=== PATIENT | male | born 1980 | race Caucasian/White ===

== ENCOUNTER 2025-01-08 09:26 | Outpatient (CLI) | payer BC, SELFPAY ==
--- OUTSIDE RECORDS SUMMARY | 2025-01-08 10:20 | XMS_ITS | Clinical Summary ---
Author Organization [facility] Address [address] [place] [address] Care Team Providers Care Audit Partner Name Role Phone Hollis Connor MD Primary Care Provider [phone] Allergies Active Allergy Reactions Criticality Noted Date Comments Banana Hives Reaction: Hives, , Reaction: Hives, Medications GLUCAGON 1 mg injection INJECT 1 ML (1 UNIT OR 1 MG) UNDER THE SKIN DAILY NEEDED FOR HYPOGLYCEMIA 1 kit 5 04/12/20 19 Active CONTOUR NEXT TEST STRIPS strip USE TO CHECK GLUCOSE 4 TIMES DAILY 1 04/12/20 19 Active lancets (Accu-Chek Fastclix Lancet Drum) misc 1 each by other route as directed 100 each 3 01/31/20 20 Active Dexcom G6 Sensor device as directed 04/06/20 21 Active Dexcom G6 Transmitter device as directed 06/03/20 21 Active valsartan (DIOVAN) 40 mg tablet Take 1 tablet (40 mg total) by mouth daily 90 tablet 3 05/16/20 22 Active Accu-Chek Guide Me Glucose Mtr misc USE TO CHECK GLUCOSE 4 TIMES DAILY 06/06/20 23 Active levothyroxine (SYNTHROID) 200 mcg tablet Take 1 tablet (200 mcg total) by mouth daily 08/16/20 24 Active insulin lispro (HumaLOG, ADMELOG) 100 unit/mL vial for injection INFUSE 160 UNITS VIA INSULIN PUMP DAILY 08/08/20 24 Active benzonatate (TESSALON) 200 mg capsuleIndicat ions:Cough Take 1 capsule (200 mg total) by mouth 2 (two) times a day as needed for cough 45 capsule 10/15/19 Active atorvastatin (LIPITOR) 20 mg tablet Take 1 tablet by mouth once daily 90 tablet 12/14/19 Active atorvastatin (LIPITOR) 20 mg tablet Take 1 tablet by mouth once daily 90 tablet 09/19/19 025 Discontinued Active Problems Problem Noted Date Diagnosed Date Class 3 severe obesity due t o excess calories with serious comorbidity and body mass index (BMI) of 40.0 to 44.9 in adult 10/15/2024 Assessment & Plan (10/15/2024 9:51 AM MOTOR VEHICLE ESCORT DRIVER): Wt Readings from Last 3 Encounters: 10/15/24 (!) 150.1 kg (331 lb) 08/19/24 (!) 150.2 kg (331 lb 1.6 oz) 06/26/23 (!) 145.2 kg (320 lb) BMI Readings from Last 3 Encounters: 10/15/24 41.37 kg/m 08/19/24 41.38 kg/m 06/26/23 40.00 kg/m Not at goal of bmi <30 Continue diet and exercise BMI Follow-up includes: nutrition counseling and exercise counseling. Type 1 diabetes mellitus with hyperglycemia 05/2023 Overview (06/26/2023): Dr Blanton at [facility] Assessment & Plan (08/19/2024 2:48 PM MOTOR VEHICLE ESCORT DRIVER): Lab Results Component Value Date HGBA1C 8.2 (H) 06/07/2023 HGBA1C 8.4 05/16/2022 HGBA1C 8.1 (H) 04/22/2021 Lab Results Component Value Date MICROALBUR 3.0 03/26/2018 LDLCALC 46 06/07/2023 CREATININE 0.78 (L) 06/07/2023 Most recent A1c at this lead dental assistant was 7.4 as per patient Not at goal of A1c <7 Recommend follow up with endocrine Would recommend increasing ozempic dose to 0.5 mg qweekly and increase basal insulin to get better glucose control He will folow up with endocrinology Assessment & Plan (06/26/2023 9:10 AM CDT): Blood sugars above goal and recommended efforts at weight loss with low carb diet increased exercise and should follow-up with his lead dental assistant for management of his diabetes as they direct. Primary hypertension 06/26/2023 Assessment & Plan (10/15/2024 9:52 AM MOTOR VEHICLE ESCORT DRIVER): BP Readings from Last 3 Encounters: 10/15/24 124/62 08/19/24 114/70 06/26/23 120/72 Vitals BP 124/62 (BP Location: Left arm, Patient Position: Sitting) Pulse 96 Temp 37.5 C (99.5 F) (Oral) Resp 16 Ht 190.5 cm (6' 3 ) Wt (!) 150.1 kg (331 lb) SpO2 95% BMI 41.37 kg/m Lab Results Component Value Date POTASSIUM 3.9 06/07/2023 At goal at this time Continue valsartan 40 mg qd Assessment & Plan (08/19/2024 2:43 PM MOTOR VEHICLE ESCORT DRIVER): BP Readings from Last 3 Encounters: 08/19/24 114/70 06/26/23 120/72 05/09/23 125/82 Vitals BP 114/70 (BP Location: Left arm, Patient Position: Sitting) Pulse 71 Resp 16 Ht 190.5 cm (6' 3 ) Wt (!) 150.2 kg (331 lb 1.6 oz) SpO2 98% BMI 41.38 kg/m Lab Results Component Value Date POTASSIUM 3.9 06/07/2023 At goal at this time Continue valsartan 40 mg qd Assessment & Plan (06/26/2023 9:09 AM CDT): Pressure well controlled on valsartan 40 mg daily Anemia 06/26/2023 Assessment & Plan (06/26/2023 9:08 AM CDT): Laboratory evaluation today and call back for results. Colonoscopy done July 2021 after her episode of diverticulitis showed hyperplastic polyp and hemorrhoids with recommendation for 3-5 year follow-up. Morbid obesity with body mas s index (BMI) of 40.0 to 44.9 in adult 06/26/2023 Assessment & Plan (10/15/2024 9:52 AM MOTOR VEHICLE ESCORT DRIVER): Wt Readings from Last 3 Encounters: 10/15/24 (!) 150.1 kg (331 lb) 08/19/24 (!) 150.2 kg (331 lb 1.6 oz) 06/26/23 (!) 145.2 kg (320 lb) BMI Readings from Last 3 Encounters: 10/15/24 41.37 kg/m 08/19/24 41.38 kg/m 06/26/23 40.00 kg/m Not at goal of bmi <30 Continue diet and exercise BMI Follow-up includes: nutrition counseling and exercise counseling. Not at goal at thsi time Assessment & Plan (08/19/2024 2:50 PM MOTOR VEHICLE ESCORT DRIVER): Wt Readings from Last 3 Encounters: 08/19/24 (!) 150.2 kg (331 lb 1.6 oz) 06/26/23 (!) 145.2 kg (320 lb) 05/09/23 (!) 148.8 kg (328 lb) BMI Readings from Last 3 Encounters: 08/19/24 41.38 kg/m 06/26/23 40.00 kg/m 05/09/23 41.00 kg/m Not at goal of bmi <30 Continue diet and exercise BMI Follow-up includes: nutrition counseling and exercise counseling. Not at goal at thsi time Recommend increasing ozempic to 0.5 mg qweekly x 30-90 days then increasing to 1 mg qweekly Assessment & Plan (06/26/2023 9:10 AM CDT): Patient is encouraged to lose weight with a combination of caloric reduction and increased exercise. Various strategies discussed. The long-term risks associated with continued morbid obesity discussed. Cellulitis of toe of left foot 05/16/2022 Assessment & Plan (05/16/2022 11:06 AM CDT): Keflex for 10 days and call back if does not improve. May need to see Podiatry quickly if no improvement. Consider antifungal treatment as well Acute diverticulitis 05/17/2021 Overview (05/17/2021): Added automatically from request for surgery [id number] Healthcare maintenance 03/31/2017 Assessment & Plan (08/19/2024 2:44 PM MOTOR VEHICLE ESCORT DRIVER): Discussed lifestyle modifications, diet and exercise. Routine blood work ordered/reviewed today. Yearly vision and dental examinations. Assessment & Plan (06/26/2023 9:09 AM CDT): Flu shot due now. Tetanus booster every 10 years. COVID booster recommended. Pneumovax completed. Colonoscopy due between July 2024 and July 2026. Will see him back in 1 year for physical fasting lab sooner if needed Assessment & Plan (05/16/2022 11:06 AM CDT): Flu shot each June. Tetanus booster every 10 years. COVID vaccine booster in the winter. Will see him back in 1 year for physical fasting lab sooner if needed. Assessment & Plan (04/30/2021 4:55 PM CDT): Flu shot each June. Tetanus booster every 10 years. COVID vaccine completed. Will see him back in 1 year for physical fasting lab sooner if needed. Assessment & Plan (04/27/2020 9:41 AM CDT): Flu shot recommended june. Tetanus booster every 10 years. Will see him back in 1 year for physical and fasting lab sooner if needed. Assessment & Plan (05/14/2019 8:03 PM CDT): Flu shot each June. Tetanus booster every 10 years. Will see him back in 1 year for physical and fasting lab sooner if needed. Assessment & Plan (04/09/2018 8:35 AM CDT): Flu shot each June. Tetanus booster every 10 years. Will see him back in the office in 1 year for physical and fasting lab sooner if needed. Assessment & Plan (03/31/2017 8:34 AM CDT): Flu shot each June. Tetanus booster every 10 years. Return to clinic in 1 year for repeat physical with fasting lab sooner if needed. Hypothyroidism 02/01/2014 Overview (12/23/2016): HYPOTHYROIDISM NOS Assessment & Plan (08/19/2024 2:43 PM MOTOR VEHICLE ESCORT DRIVER): Lab Results Component Value Date TSH 0.06 (L) 06/07/2023 Slightly hyperthryoid last visit Recheck labs now Assessment & Plan (06/26/2023 9:09 AM CDT): Labs will be printed and faxed to his lead dental assistant office and he will contact them in a few days for advice on changing his levothyroxine dose. Assessment & Plan (05/16/2022 11:05 AM CDT): TSH suppressed. Follow-up with lead dental assistant for adjustment of his levothyroxine dose. Labs faxed to his lead dental assistant. Assessment & Plan (04/30/2021 4:54 PM CDT): Patient is asymptomatic on current dose of levothyroxine and TSH free T4 are normal and we will repeat levels before next visit. Assessment & Plan (04/27/2020 9:41 AM CDT): Patient is asymptomatic on current dose of levothyroxine and TSH free T4 are normal and we will repeat levels before next visit. Assessment & Plan (07/29/2019 1:54 PM MOTOR VEHICLE ESCORT DRIVER): Patient is asymptomatic on current dose of levothyroxine and TSH free T4 are normal and we will repeat levels before next visit. Assessment & Plan (05/14/2019 8:03 PM CDT): Patient is asymptomatic on current dose of levothyroxine and TSH free T4 are normal and we will repeat levels before next visit. Assessment & Plan (04/09/2018 8:35 AM CDT): Patient is asymptomatic on current dose of levothyroxine and TSH free T4 are normal and we will repeat levels before next visit. Assessment & Plan (03/31/2017 8:34 AM CDT): Patient is asymptomatic on current dose of levothyroxine and TSH is normal and we will repeat levels before next visit. Type 1 diabetes mellitus without complication (C MS/HCC) 12/25/2012 Overview (05/16/2022): Dr Blanton at [facility] Assessment & Plan (10/15/2024 9:57 AM MOTOR VEHICLE ESCORT DRIVER): Lab Results Component Value Date HGBA1C 8.2 (H) 06/07/2023 No results found for: SCRA1C Assessment & Plan (05/16/2022 11:05 AM CDT): A1c above goal. If sugars and carbs and increase exercise for weight loss. Follow-up with his lead dental assistant for management of his insulin pump Assessment & Plan (04/30/2021 4:54 PM CDT): Suggested changing his pumps site and using a new vial of insulin as there is no other obvious cause of his suddenly elevated blood sugars. Discuss with his lead dental assistant if no improvement. He has long-acting insulin at home and I provided him with a prescription for short-acting insulin for boluses if needed if pump found to be malfunctioning over the weekend. Assessment & Plan (04/27/2020 9:41 AM CDT): A1c above goal patient is aware of importance of working on diet exercise weight loss and following up with his lead dental assistant for management of his insulin. Continue his atorvastatin and LDLs below goal. Blood pressure normal with normal microalbumin creatinine ratio therefore holding SACHA-inhibitor. Assessment & Plan (07/29/2019 1:54 PM MOTOR VEHICLE ESCORT DRIVER): LDL much improved on his atorvastatin. He is without side effects. Check all labs before next visit. Follow-up with his lead dental assistant for management of his sugars. Will see him back in 9 months for physical and fasting lab sooner if needed. Assessment & Plan (05/14/2019 8:04 PM CDT): Continue Ozempic and insulin and follow up with his lead dental assistant as they direct. Start atorvastatin 20 mg p.o. Q.h.s. And check lipids and LFTs before next visit in 3 months. Assessment & Plan (04/09/2018 8:35 AM CDT): A1c above goal and proper diet and weight loss recommended. Continue exercise. Check blood sugars 3-5 times daily with his insulin pump. Follow up with his lead dental assistant who manages his insulin. Plan on statin therapy once 38 years old. Assessment & Plan (03/31/2017 8:35 AM CDT): A1c is above goal and I have urged him to increase exercise and lose weight and continue low carb diet. He will be seeing a tack maker next week. Follow up with his lead dental assistant who manages his insulin pump. He should check blood sugars 3- 5 times daily. Monofilament testing is intact. Blood pressure is below goal without medication and microalbumin creatinine ratio remains normal. Consider starting statin therapy at age 38. Otherwise LDL currently well controlled. He did diabetic eye exam. Resolved Problems Problem Noted Date Diagnosed Date Resolved Date Diabetes mellitus 07/16/2012 03/31/2017 Overview (12/22/2016): Diabetes mellitus Encounters Date Type Department Care Team Description 10/15/2024 10:10 AM MOTOR VEHICLE ESCORT DRIVER - 10/15/2024 11:59 PM MOTOR VEHICLE ESCORT DRIVER [place] [address] Type 1 diabetes mellitus without complication (CMS/HCC) ([facility]) Discharge Disposition: Discharge to home or self care 10/15/2024 10:00 AM MOTOR VEHICLE ESCORT DRIVER Office Visit [facility] at [address] [place] [address] Hollis Connor MD Influenza A (Primary Dx); Fever, unspecified fever cause; Type 1 diabetes mellitus without complication (CMS/HCC) ([facility]); Primary hypertension; Morbid obesity with body mass index (BMI) of 40.0 to 44.9 in adult ([facility]); Class 3 severe obesity due to excess calories with serious comorbidity and body mass index (BMI) of 40.0 to 44.9 in adult ([facility]) from Last 3 Months Immunizations Immunization Administration Dates Next Due Influenza, Quadrivalent, Spl it, Intramuscular 07/19/2019 Influenza, Quadrivalent, Spl it, Preservative Free, Intramuscular 07/06/2022,06/28/2021,07/01/2020 Influenza, Split 06/30/2010 Influenza, Trivalent, IM (MDV) 07/10/2012 Influenza, Trivalent, Preser vative Free, Intramuscular 08/19/2024 Influenza, Unspecified 06/26/2023(Deferr ed: Patient Refused),04/18/2023(Deferred: Patient Refused),04/30/2021(Deferred: Patient Refused),04/20/2020(Deferred: Patient Refused),04/25/2019(Deferred: Patient Refused),05/30/2018,05/30/2018, 017,06/20/2016 Moderna SARS-CoV-2 Monovalen t Vaccination (12+ YRS) 10/31/2020,10/03/2020 Pneumococcal Polysaccharide PPV23 03/19/2014,10/2013 Td, adsorbed 09/18/2003 Tdap 11/10/2015,03/19/2014,03/19/2014 Surgical History Surgery Date Site/Laterality Comments OTHER SURGICAL HISTORY 01-podiatry: Dr Cummins COLONOSCOPY 08/09/2021 Medical History Medical History Date Comments Hx Other Medical 01-podiatry Hx Other Medical Hypothyroidism, primary Diabetes mellitus (HCC) Diabetes Hx Other Medical Endo- Dr Morena Coleman Hypertension Hypercholesteremia Thyroid disease Family History Medical History Relation Name Comments Other Brother 2 Alive and well; Thyroid disease Father Thyroid diso rder; Other Mother Alive and well; Thyroid disease Other Family histo ry of Thyroid disease; Other Paternal Grandfather Cancer -lung (asbestosis); Relation Name Status Comments Brother 1 Alive Brother 2 Father Mother Alive Other Paternal Grandfather Alive Social History Tobacco Use Types Packs/Day Years Used Date Smoking Tobacco: Never Smokeless Tobacco: Never Tobacco Cessation:Counseling Given: Not Answered Alcohol Use Standard Drinks/Week Comments Yes 0 (1 standard drink = 0.6 oz pur e alcohol) PHQ-2 Answer Date Recorded PHQ-2 Total Score (If total score is 3 or more points, staff should administer the PHQ-9) 0 10/15/2024 Sex and Gender Information Value Date Recorded Sex Assigned at Not on file Legal Sex Male 9:27 AM MOTOR VEHICLE ESCORT DRIVER Gender Identity Not on file Sexual Orientation Not on file Obstetrics History Last Filed Vital Signs Vital Sign Reading Time Taken Comments Blood Pressure 124/62 10/15/2024 9:42 AM MOTOR VEHICLE ESCORT DRIVER Pulse 96 10/15/2024 9:42 AM MOTOR VEHICLE ESCORT DRIVER Temperature 37.5 C (99.5 F) 10/15/2024 9:42 AM MOTOR VEHICLE ESCORT DRIVER Respiratory Rate 16 10/15/2024 9:42 AM MOTOR VEHICLE ESCORT DRIVER Oxygen Saturation 95% 10/15/2024 9:42 AM MOTOR VEHICLE ESCORT DRIVER Inhaled Oxygen Concentration - - Weight 150.1 kg (331 lb) 10/15/2024 9:42 AM MOTOR VEHICLE ESCORT DRIVER Height 190.5 cm (6' 3 ) 10/15/2024 9:42 AM MOTOR VEHICLE ESCORT DRIVER Body Mass Index 41.37 10/15/2024 9:42 AM MOTOR VEHICLE ESCORT DRIVER Plan of Treatment Health Maintenance Due Date Last Done Comments Hepatitis C Screening 1978 Hepatitis B Screening 1996 Pneumococcal vaccine <65 (2 of 2 - PCV) 03/19/2015 03/19/2014, 03/19/2014 Hemoglobin A1C 12/06/2023 06/07/2023, 04/19, 04/22/2021, Additional history exists Dilated Eye Exam 04/18/2024 04/18/2022, 10/2020, 12/25/2019, Additional history exists Covid-19 Vaccine ( season) 2024 10/04/2021, 10/31/2020, 10/03/2020 Lipid Panel 06/07/2024 06/07/2023, 04/19, 04/22/2021, Additional history exists TSH Level 06/07/2024 06/07/2023, 06/18, 05/07/2022, Additional history exists eGFR 06/07/2024 06/07/2023, 04/19, 04/22/2021, Additional history exists Foot Exam 06/26/2024 06/26/2023, 04/19, 04/30/2021, Additional history exists Colon Cancer Screening-Colonoscopy 08/09/2025 08/09/2021 Regular Well Visit/Exam 18-64 08/19/2025 08/19/2024, 06/26/2023, 05/16/2022, Additional history exists Albumin Creatinine Ratio, Urine 10/15/2025 10/15/2024, 06/07/2023, 05/07/2022, Additional history exists Depression Screening 10/15/2025 10/15/2024, 08/19/2024, 06/26/2023, Additional history exists DTaP/Tdap/Td Vaccine (4 - Td or Tdap) 11/10/2025 11/10/2015, 03/19/2014, 03/19/2014, Additional history exists Influenza Vaccine Completed 08/19/2024, , 06/28/2021, Additional history exists HPV Vaccines Aged Out No longer eligi ble based on patient's age to complete this topic Procedures Procedure Name Priority Date/Time Associated Diagnosis Comments ALBUMIN CREATININE RATIO, URINE Routine 10/15/2024 10:10 AM MOTOR VEHICLE ESCORT DRIVER Type 1 diabetes mellitus without complication ([facility]) ([facility]) POC INFLUENZA A/B, COVID-19 ANTIGEN Routine 10/15/2024 9:46 AM MOTOR VEHICLE ESCORT DRIVER Fever, unspecified fever cause EGFR Routine 06/07/2023 9:21 AM CDT Preventative [facility] care HEMOGLOBIN A1C Routine 06/07/2023 9:21 AM CDT [facility] LIPID PANEL Routine 06/07/2023 9:21 AM CDT [facility] TSH Routine 06/07/2023 9:21 AM CDT [facility] care Other specified hypothyroidism DIABETIC EYE EXAM Routine 04/18/2022 COLONOSCOPY 08/09/2021 11:26 AM MOTOR VEHICLE ESCORT DRIVER DIABETIC FOOT EXAM Routine 03/31/2017 from Last 3 Months or Most Recently Relevant to Health Maintenance Results * Albumin Creatinine Ratio, Urine (10/15/2024 10:10 AM MOTOR VEHICLE ESCORT DRIVER) Albumin Ur 16.4 mg/L Comment: Interpretive Data No reference range established. Current interpretive data was last revised 2019. Creatinine Ur 233.4 mg/dL [facility] Comment: Interpretive Data No reference range established. Current interpretive data was last revised 2019. Albumin Creatinine Ratio, Ur 7 1 - 29 mg/g [facility] Urine 10/15/2024 10:1 0 AM MOTOR VEHICLE ESCORT DRIVER 10/15/2024 9:22 PM MOTOR VEHICLE ESCORT DRIVER Hollis Connor MD LAB URINE ORDERABLES Final Resul t [facility] [address] Department [place] [address] * (ABNORMAL) POC Influenza A/B, COVID-19 antigen (10/15/2024 9:46 AM MOTOR VEHICLE ESCORT DRIVER) Pathologist [facility] Influenza A Ag, POC Positive(A) Negative [facility] Influenza B Ag, POC Negative Negative [facility] COVID-19 Ag POC Presumptive Negative Presumptive Negative, Invalid [facility] Nasopharyngeal 10/15/2024 9: 46 AM MOTOR VEHICLE ESCORT DRIVER us Hollis Connor MD POINT OF CARE TEST ORDERABLES Ed ited Result - Final [facility] [address] [place] [address] * eGFR (06/07/2023 9:21 AM CDT) eGFR 113 mL/min/1. 73 m2 [facility] Comment: Interpretive Data Reference Interval Normal >/= 90 mL/min/1.73m2 Mildly decreased* 60 - 89 mL/min/1.73m2 Mildly to moderately decreased 45 - 59 mL/min/1.73m2 Moderately to severely decreased 30 - 44 mL/min/1.73m2 Severely decreased 15 - 29 mL/min/1.73m2 Kidney Failure < 15 mL/min/1.73m2 *Relative to young adult level Estimated glomerular filtration rate is determined by the 2020 CKD-EPI equation recommended by the National Kidney Foundation (A Unifying Approach to GFR Estimation: Recommendations of the NKF-ASK Task Force on Reassessing the Inclusion of Race in Diagnosing Kidney Disease, JASN 2020). The CKD-EPI equation should not be used for patients with unstable renal function and has not been validated in children and those over 70. Current interpretive data was last reviewed 2021. Testing performed by: [address], [address] Blood 06/07/2023 9:21 AM CDT 06/07/2023 2:41 PM CDT Radames Archer MD LAB BLOOD ORDERABLES Final R esult Performing Organization Address City/[facility]/ZIP Co de Phone Number [facility] ([place]) [address] [place] [address] [employer] [place] [phone] * (ABNORMAL) TSH (06/07/2023 9:21 AM CDT) Thyroid Stimulating Hormone 0.06(L) 0.30 - 4.20 mcIUnit/mL [facility] ([place]) Comment:Testing performed by : [address], [address] Blood 06/07/2023 9:21 AM CDT 06/07/2023 2:33 PM CDT Narrative [facility] ([place]) - 06/07/2023 3:16 PM CDT fasting Radames Archer MD LAB BLOOD ORDERABLES Final R esult [facility] ([place]) [address] [facility] [place] [address] * (ABNORMAL) Hemoglobin A1c (06/07/2023 9:21 AM CDT) Hgb A1C 8.2(H) 4.0 - 5.6 % [facility] ([place]) Comment:Testing performed by : [facility], [address] [place] [address]., [id number] Estimated Average Glucose 189 mg/dL [facility] ([place]) Comment: The ADA recommends reporting an estimated Average Glucose (eAG) with all Hemoglobin A1c results using the equation derived from a study of 507 normal and diabetic adults. Minority populations were underrepresented and children were not included. (Diabetes Care 31:3637-7496, 2008). The eAG is not equivalent to a fasting glucose. Testing performed by: [address] [address] Blood 06/07/2023 9:21 AM CDT 06/07/2023 2:33 PM CDT Narrative [facility] ([place]) - 06/07/2023 3:13 PM CDT fasting us Radames Archer MD LAB BLOOD ORDERABLES Final R esult [facility] ([place]) [address] [facility] Department [place] [address] * (ABNORMAL) Lipid panel (06/07/2023 9:21 AM CDT) [facility] Cholesterol 92 30 - 199 mg/dL [facility] ([place]) Comment: Interpretive Data Ages < or = 19 years Acceptable: <170 mg/dL Borderline high: 170-199 mg/dL High: >or= 200 mg/dL Ages > or = 20 years Desirable: <200 mg/dL Borderline high: 200-239 mg/dL High: >or= 240 mg/dL Literature References: 1. Expert Panel on Integrated Guidelines for Cardiovascular Health and Risk Reduction in Children and Adolescents. Pediatrics 2011;128:S213 2. NCEP Expert Panel. Circulation 2004;110:227 Current Interpretive Data was last revised on 2018. Testing performed by: [address] [place]., [address] Triglycerides 44 <=149 mg/dL [facility] ([place]) Comment: Interpretive Data Ages < or = 9 years Acceptable: <75 mg/dL Borderline high: 75-99 mg/dL High: >or= 100 mg/dL Ages 10 to 20 years Acceptable: <90 mg/dL Borderline high: 90-129 mg/dL High: >or= 130 mg/dL Ages > or = 20 years Desirable: <150 mg/dL Borderline high: 150-199 mg/dL High: 200-499 mg/dL Very high: >or= 499 mg/dL Literature References: 1. Expert Panel on Integrated Guidelines for Cardiovascular Health and Risk Reduction in Children and Adolescents. Pediatrics 2011;128:S213 2. NCEP Expert Panel. Circulation 2004;110:227 Current Interpretive Data was last revised on 2018. Testing performed by: [facility], [address] [place] [address]., [address] HDL 37(L) >=40 mg/dL [facility] ([place]) Comment: Interpretive Data Ages < or = 19 years Acceptable: >45 mg/dL Borderline low: 40-45 mg/dL Low: <40 mg/dL Ages > or = 20 years Desirable: >or= 60 mg/dL Low: <40 mg/dL Literature References: 1. Expert Panel on Integrated Guidelines for Cardiovascular Health and Risk Reduction in Children and Adolescents. Pediatrics 2011;128:S213 2. NCEP Expert Panel. Circulation 2004;110:227 Current Interpretive Data was last revised on 2018. Testing performed by: [facility], [address] [place] [address]., [address] LDL, calculated 46 <=129 mg/dL [facility] ([place]) Comment: Interpretive Data Ages < or = 19 years Acceptable: <110 mg/dL Borderline high: 110-129 mg/dL High: >or= 130 mg/dL Ages > or = 20 years Optimal: <100 mg/dL Near optimal: 100-129 mg/dL Borderline high: 130-159 mg/dL High: >160 mg/dL Literature References: 1. Expert Panel on Integrated Guidelines for Cardiovascular Health and Risk Reduction in Children and Adolescents. Pediatrics 2011;128:S213 2. NCEP Expert Panel. Circulation 2004;110:227 Current Interpretive Data was last revised on 2018. Testing performed by: [facility], [address] [place] [address]., [address] Non-HDL Cholesterol 55 mg/dL [facility] ([place]) Comment: Interpretive Data Ages < or = 19 years Acceptable: <120 mg/dL Borderline high: 120-144 mg/dL High: >145 mg/dL Ages > or = 20 years When triglycerides are >200 mg/dL, Non-HDL cholesterol is a secondary target of therapy with treatment goals that are 30 mg/dL greater than the LDL cholesterol target. Literature References: 1. Expert Panel on Integrated Guidelines for Cardiovascular Health and Risk Reduction in Children and Adolescents. Pediatrics 2011;128:S213 2. NCEP Expert Panel. Circulation 2004;110:227 Current Interpretive Data was last revised on 2018. Testing performed by: [facility], [address] [place] [address]., [address] Chol/HDL ratio 2 MOIZ MCMULLEN ([place]) Comment:Testing performed by : [facility], [address] [place] [address]., [address] Blood 06/07/2023 9:21 AM CDT 06/07/2023 2:33 PM CDT Narrative ELIO MCMULLEN ([place]) - 06/07/2023 3:16 PM CDT fasting us Radames Archer MD LAB BLOOD ORDERABLES Final R esult ELIO KEMI ([place]) 1 [facility] Department of Laboratories [place], [place] [id number] * Diabetic Eye Exam (04/18/2022) us Generic External Data Provider HEALTH MAINTENANC E Final Result * COLONOSCOPY (08/09/2021 11:26 AM MOTOR VEHICLE ESCORT DRIVER) Anatomical Region Laterality Modality Other Narrative Procedure Note Irineo Seaman MD - 08/09/2021 11:26 AM CST [facility] Patient Name: David Maurice Procedure Date: 08/09/2021 11:26AM Date of : 1980 Admit Type: Outpatient Age: 40 Gender: Male Attending MD: Irineo Seaman M.D. Room: [facility] ENDOSCOPY ROOM 1 Note Status: Finalized Patient Profile: This is a 40 year old male. Patient has recentepisode of acute diverticulitis, doing well afterantibiotic treatment. Colonoscopy for evaluation. No family history of colon cancer per Procedure: Colonoscopy Indications: This is the patient's first colonoscopy, Follow-upof diverticulitis Referring MD: Rodrick Montes PA-C Providers: Irineo Seaman M.D. Impression: - One 8 mm polyp in the distal sigmoid colon,removed with a cold snare. Resected and retrieved. - Internal hemorrhoids. Recommendation: - Await pathology results. - Repeat colonoscopy in 3 - 5 years for screening purposes. - Continue present medications. Medicines: Monitored Anesthesia Care Complications: No immediate complications. Estimated Blood Loss: Estimated blood loss: none. Procedure: Pre-Anesthesia Assessment: - Prior to the procedure, a History and Physicalwas performed, and patient medications and allergieswere reviewed. The patient's tolerance of previous anesthesia was also reviewed. The risks andbenefits of the procedure and the sedation options and risks were discussed with the patient. All questions were answered, and informed consent was obtained. Prior Anticoagulants: The patient has taken no previous anticoagulant or antiplatelet agents. ASA Grade Assessment: II - A patient with mild systemicdisease. After reviewing the risks and benefits, the patient was deemed in satisfactory condition to undergo the procedure. The benefits, risks and alternatives of theprocedure and sedation were discussed and informed consentwas obtained. All questions were answered. Please referto the signed informed consent document in the medical record. The bowel preparation used was Miralax and bisacodyl tablets via split dose instruction. The scope was passed under direct vision. The Pediatric Colonoscope PCF-H190L [id number] was introducedthrough the anus and advanced to the the cecum, identifiedby appendiceal orifice and ileocecal valve. Thequality of the bowel preparation was good. Bowel prep was administered using a split dose. Findings: The perianal and digital rectal examinations were normal. The cecum appeared normal. The descending colon, transverse colon and ascending colon appeared normal. Multiple medium-mouthed diverticula were found in the sigmoid colon.No inflammatory changes noted at this time An 8 mm polyp was found in the distal sigmoid colon. The polyp was sessile. The polyp was removed with a cold snare. Resection and retrieval were complete. Internal hemorrhoids were found during retroflexion. The hemorrhoids were small. Electronically signed by Irineo Seaman M.D. Irineo Seaman M.D. 08/09/2021 2:00:14 PM Number of Addenda: 0 Note Initiated On: 08/09/2021 11:26 AM Procedure Code(s): --- Professional --- 66360, Colonoscopy, flexible; with removal of tumor(s), polyp(s), or other lesion(s) by snare technique Diagnosis Code(s): --- Professional --- K64.8, Other hemorrhoids K63.5, Polyp of colon K57.32, Diverticulitis of large intestine without perforation orabscess without bleeding K57.30, Diverticulosis of large intestine without perforation orabscess without bleeding CPT copyright 2019 [employer]. All rights reserved. The codes documented in this report are preliminary and upon hi low truck driver reviewmay be revised to meet current compliance requirements. Recognized by the [employer] for promoting quality in endoscopy us Irineo Seaman MD ENDOSCOPY PROCEDURES Final Result * Diabetic Foot Exam (03/31/2017) Narrative Elzbieta Garcia - 03/31/2017 Results already scanned in media us Historical Provider HEALTH MAINTENANCE Final Result from Last 3 Months or Most Recently Relevant to Health Maintenance Insurance [facility] [facility] Advance Directives For more information, please contact: [phone] * Full Code (Latest Code Status on File) Date Activated Date Inactivated Comments 08/09/2021 11:15 AM 08/09/2021 6:46 PM Care Teams Audit Partner Relationship Specialty Start Date End Date Hollis Connor MD [address] [place] [address] PCP - General Family Medicine 08/19/24
--- OUTSIDE RECORDS SUMMARY | 2025-01-08 10:20 | XMS_ITS | Referral Summary ---
Author Organization [facility] Address [address] [place] [phone] Care Team Providers Care Aluminum Siding Mechanic Name Role Phone Hollis Connor MD Primary Care Provider [phone] Encounters Date Type Department Care Team Description 10/15/2024 10:10 AM STENCIL MACHINE OPERATOR - 10/15/2024 11:59 PM STENCIL MACHINE OPERATOR Hospital Encounter [address] [address] Type 1 diabetes mellitus without complication (CMS/HCC) ([facility]) Discharge Disposition: Discharge to home or self care 10/15/2024 10:00 AM STENCIL MACHINE OPERATOR Office Visit [facility] Primary Care at [address] [place] [phone] Hollis Connor MD Influenza A (Primary Dx); Fever, unspecified fever cause; Type 1 diabetes mellitus without complication (CMS/HCC) ([facility]); Primary hypertension; Morbid obesity with body mass index (BMI) of 40.0 to 44.9 in adult ([facility]); Class 3 severe obesity due to excess calories with serious comorbidity and body mass index (BMI) of 40.0 to 44.9 in adult ([facility]) from Last 3 Months Allergies Active Allergy Reactions Criticality Noted Date [...] as needed for cough 45 capsule 10/15/19 25 Active atorvastatin (LIPITOR) 20 mg tablet Take 1 tablet by mouth once daily 90 tablet 12/14/19 25 Active atorvastatin (LIPITOR) 20 mg tablet Take 1 tablet by mouth once daily 90 tablet 09/19/19 25 025 Discontinued Active Problems Problem Noted Date Diagnosed Date Class 3 severe obesity due t o excess calories with serious comorbidity and body mass index (BMI) of 40.0 to 44.9 in adult 10/15/2024 Assessment & Plan (10/15/2024 9:51 AM STENCIL MACHINE OPERATOR): Wt Readings from Last 3 Encounters: 10/15/24 [...] counseling. Type 1 diabetes mellitus with hyperglycemia 10/0 05/2023 Overview (06/26/2023): Dr Blanton at [facility] Assessment & Plan (08/19/2024 2:48 PM STENCIL MACHINE OPERATOR): Lab Results Component Value Date HGBA1C 8.2 (H) 06/07/2023 HGBA1C 8.4 05/16/2022 HGBA1C 8.1 (H) 04/22/2021 Lab Results Component Value Date MICROALBUR 3.0 03/26/2018 LDLCALC 46 06/07/2023 CREATININE 0.78 (L) 06/07/2023 Most recent A1c at this management tech was 7.4 as per patient Not at [...] increased exercise and should follow-up with his management tech for management of his diabetes as they direct. Primary hypertension 06/26/2023 Assessment & Plan (10/15/2024 9:52 AM STENCIL MACHINE OPERATOR): BP Readings from Last 3 Encounters: 10/15/24 [...] qd Assessment & Plan (08/19/2024 2:43 PM STENCIL MACHINE OPERATOR): BP Readings from Last 3 Encounters: 08/19/24 [...] 06/26/2023 Assessment & Plan (10/15/2024 9:52 AM STENCIL MACHINE OPERATOR): Wt Readings from Last 3 Encounters: 10/15/24 [...] time Assessment & Plan (08/19/2024 2:50 PM STENCIL MACHINE OPERATOR): Wt Readings from Last 3 Encounters: 08/19/24 [...] (05/17/2021): Added automatically from request for surgery [id number] Healthcare maintenance 03/31/2017 Assessment & Plan (08/19/2024 2:44 PM STENCIL MACHINE OPERATOR): Discussed lifestyle modifications, diet and exercise. Routine [...] (04/27/2020 9:41 AM CDT): Flu shot recommended this June. Tetanus booster every 10 years. Will [...] NOS Assessment & Plan (08/19/2024 2:43 PM STENCIL MACHINE OPERATOR): Lab Results Component Value Date TSH 0.06 (L) 06/07/2023 Slightly hyperthryoid last visit Recheck labs now Assessment & Plan (06/26/2023 9:09 AM CDT): Labs will be printed and faxed to his management tech office and he will contact them in a few days for advice on changing his levothyroxine dose. Assessment & Plan (05/16/2022 11:05 AM CDT): TSH suppressed. Follow-up with management tech for adjustment of his levothyroxine dose. Labs faxed to his management tech. Assessment & Plan (04/30/2021 4:54 PM CDT): [...] visit. Assessment & Plan (07/29/2019 1:54 PM STENCIL MACHINE OPERATOR): Patient is asymptomatic on current dose of [...] MS/HCC) 12/25/2012 Overview (05/16/2022): Dr Blanton at [facility] Assessment & Plan (10/15/2024 9:57 AM STENCIL MACHINE OPERATOR): Lab Results Component Value Date HGBA1C 8.2 (H) 06/07/2023 No results found for: SCRA1C Assessment & Plan (05/16/2022 11:05 AM CDT): A1c above goal. If sugars and carbs and increase exercise for weight loss. Follow-up with his management tech for management of his insulin pump Assessment & Plan (04/30/2021 4:54 PM CDT): Suggested changing his pumps site and using a new vial of insulin as there is no other obvious cause of his suddenly elevated blood sugars. Discuss with his management tech if no improvement. He has long-acting insulin at home and I provided him with a prescription for short-acting insulin for boluses if needed if pump found to be malfunctioning over the weekend. Assessment & Plan (04/27/2020 9:41 AM CDT): A1c above goal patient is aware of importance of working on diet exercise weight loss and following up with his management tech for management of his insulin. Continue his atorvastatin and LDLs below goal. Blood pressure normal with normal microalbumin creatinine ratio therefore holding SACHA-inhibitor. Assessment & Plan (07/29/2019 1:54 PM STENCIL MACHINE OPERATOR): LDL much improved on his atorvastatin. He is without side effects. Check all labs before next visit. Follow-up with his management tech for management of his sugars. Will see him back in 9 months for physical and fasting lab sooner if needed. Assessment & Plan (05/14/2019 8:04 PM CDT): Continue Ozempic and insulin and follow up with his management tech as they direct. Start atorvastatin 20 mg p.o. Q.h.s. And check lipids and LFTs before next visit in 3 months. Assessment & Plan (04/09/2018 8:35 AM CDT): A1c above goal and proper diet and weight loss recommended. Continue exercise. Check blood sugars 3-5 times daily with his insulin pump. Follow up with his management tech who manages his insulin. Plan on statin therapy once 38 years old. Assessment & Plan (03/31/2017 8:35 AM CDT): A1c is above goal and I have urged him to increase exercise and lose weight and continue low carb diet. He will be seeing a ship scraper next week. Follow up with his management tech who manages his insulin pump. He should [...] mellitus 07/16/2012 03/31/2017 Overview (12/22/2016): Diabetes mellitus Immunizations Immunization Administration Dates Next Due Influenza, [...] PPV23 03/19/2014,10/2013 Td, adsorbed 09/18/2003 Tdap 11/10/2015,03/19/2014,03/19/2014 Social History Tobacco Use Types Packs/Day Years [...] on file Legal Sex Male 9:27 AM STENCIL MACHINE OPERATOR Gender Identity Not on file Sexual Orientation Not on file Last Filed Vital Signs Vital Sign Reading Time Taken Comments Blood Pressure 124/62 10/15/2024 9:42 AM STENCIL MACHINE OPERATOR Pulse 96 10/15/2024 9:42 AM STENCIL MACHINE OPERATOR Temperature 37.5 C (99.5 F) 10/15/2024 9:42 AM STENCIL MACHINE OPERATOR Respiratory Rate 16 10/15/2024 9:42 AM STENCIL MACHINE OPERATOR Oxygen Saturation 95% 10/15/2024 9:42 AM STENCIL MACHINE OPERATOR Inhaled Oxygen Concentration - - Weight 150.1 kg (331 lb) 10/15/2024 9:42 AM STENCIL MACHINE OPERATOR Height 190.5 cm (6' 3 ) 10/15/2024 9:42 AM STENCIL MACHINE OPERATOR Body Mass Index 41.37 10/15/2024 9:42 AM STENCIL MACHINE OPERATOR Plan of Treatment Not on file Procedures Procedure Name Priority Date/Time Associated Diagnosis Comments ALBUMIN CREATININE RATIO, URINE Routine 10/15/2024 10:10 AM STENCIL MACHINE OPERATOR Type 1 diabetes mellitus without complication (CMS/HCC) (HCC) POC INFLUENZA A/B, COVID-19 ANTIGEN Routine 10/15/2024 9:46 AM STENCIL MACHINE OPERATOR Fever, unspecified fever cause EGFR Routine 06/07/2023 9:21 AM CDT Preventative [facility] care HEMOGLOBIN A1C Routine 06/07/2023 9:21 AM CDT [facility] LIPID PANEL Routine 06/07/2023 9:21 AM CDT [facility] TSH Routine 06/07/2023 9:21 AM CDT [facility] care Other specified hypothyroidism DIABETIC EYE EXAM Routine 04/18/2022 COLONOSCOPY 08/09/2021 11:26 AM STENCIL MACHINE OPERATOR DIABETIC FOOT EXAM Routine 03/31/2017 from Last 3 Months or Most Recently Relevant to Health Maintenance Results * Albumin Creatinine Ratio, Urine (10/15/2024 10:10 AM STENCIL MACHINE OPERATOR) Albumin Ur 16.4 mg/L Comment: Interpretive Data No reference range established. Current interpretive data was last revised 2019. Creatinine Ur 233.4 mg/dL ELIO ABRAHAM Comment: Interpretive Data No reference range established. Current interpretive data was last revised 2019. Albumin Creatinine Ratio, Ur 7 1 - 29 mg/g ELIO ABRAH[facility] Urine 10/15/2024 10:1 0 AM STENCIL MACHINE OPERATOR 10/15/2024 9:22 PM STENCIL MACHINE OPERATOR us Hollis Geeta MD LAB URINE ORDERABLES Final Resul t ELIO [id number] [facility] Department [place] [address] * (ABNORMAL) POC Influenza A/B, COVID-19 antigen (10/15/2024 9:46 AM STENCIL MACHINE OPERATOR) Influenza A Ag, POC Positive(A) Negative [facility] PCP [facility] Influenza B Ag, POC Negative Negative [facility] PCP [facility] COVID-19 Ag POC Presumptive Negative Presumptive Negative, Invalid [facility] PCP [facility] Nasopharyngeal 10/15/2024 9: 46 AM STENCIL MACHINE OPERATOR us Hollis Connor MD POINT OF CARE TEST ORDERABLES Ed ited Result - Final [facility] PCP [facility] [address] [facility] [address] [place] [id number] * eGFR (06/07/2023 9:21 AM CDT) eGFR 113 mL/min/1. 73 m2 ELIO [facility] ([place]) Comment: Interpretive Data Reference Interval Normal >/= [...] was last reviewed 2021. Testing performed by: [facility], [address] [place] [address], [place]., [address] Blood 06/07/2023 9:21 AM CDT 06/07/2023 2:41 PM CDT Radames Archer MD LAB BLOOD ORDERABLES Final R esult ELIO MCMULLEN ([place]) [address] [place] [address] * (ABNORMAL) TSH (06/07/2023 9:21 AM CDT) Thyroid Stimulating Hormone 0.06(L) 0.30 - 4.20 mcIUnit/mL ELIO MCMULLEN ([place]) Comment:Testing performed by : [address] [address] Blood 06/07/2023 9:21 AM CDT 06/07/2023 2:33 PM CDT Narrative ELIO MCMULLEN ([place]) - 06/07/2023 3:16 PM CDT fasting Radames Archer MD LAB BLOOD ORDERABLES Final R esult Performing Organization Address City/[facility]/ZIP Co de Phone Number ELIO MCMULLEN ([place]) [address] [place] [address] * (ABNORMAL) Hemoglobin A1c (06/07/2023 9:21 AM CDT) Hgb A1C 8.2(H) 4.0 - 5.6 % ELIO MCMULLEN ([place]) Comment:Testing performed by : [address] [place] [address] Estimated Average Glucose 189 mg/dL ELIO MCMULLEN ([place]) Comment: The ADA recommends reporting an estimated Average Glucose (eAG) with all Hemoglobin A1c results using the equation derived from a study of 507 normal and diabetic adults. Minority populations were underrepresented and children were not included. (Diabetes Care 31:6290-1919, 2008). The eAG is not equivalent to a fasting glucose. Testing performed by: [address] [place] [address] Blood 06/07/2023 9:21 AM CDT 06/07/2023 2:33 PM CDT Narrative ELIO MCMULLEN ([place]) - 06/07/2023 3:13 PM CDT fasting us Radames Archer MD LAB BLOOD ORDERABLES Final R esult ELIO MCMULLEN ([place]) 1 [facility] Department [place] [address] * (ABNORMAL) Lipid panel (06/07/2023 9:21 AM CDT) Cholesterol 92 30 - 199 mg/dL ELIO [...] last revised on 2018. Testing performed by: [facility], [address] [place] [address]., [address] Triglycerides 44 <=149 mg/dL ELIO MCMULLEN ([place]) [...] last revised on 2018. Testing performed by: [facility], [address] [place] [address]., [address] HDL 37(L) >=40 mg/dL ELIO SAAB H [...] last revised on 2018. Testing performed by: [facility], [address] [place] [address]., [address] LDL, calculated 46 <=129 mg/dL [facility] [...] last revised on 2018. Testing performed by: [facility], [address] [place] [address]., [address] Non-HDL Cholesterol 55 mg/dL ELIO MCMULLEN ([place]) Comment: Interpretive Data [...] last revised on 2018. Testing performed by: [facility], [address] [place] [address]., [address] Chol/HDL ratio 2 CERNE R KEMI ([place]) Comment:Testing performed by : [facility], [address] [place] [address], [place]., [address] Blood 06/07/2023 9:21 AM CDT 06/07/2023 2:33 PM CDT Narrative ELIO MCMULLEN ([place]) - 06/07/2023 3:16 PM CDT fasting us Radames Archer MD LAB BLOOD ORDERABLES Final R esult ELIO MCMULLEN ([place]) 1 [facility] Department [place] [address] * Diabetic Eye Exam (04/18/2022) us Generic External Data Provider [facility] MAINTENANC E Final Result * COLONOSCOPY (08/09/2021 11:26 AM STENCIL MACHINE OPERATOR) Anatomical Region Laterality Modality Other Narrative Procedure Note Irineo Seaman MD - 08/09/2021 11:26 AM CST [facility] Patient Name: David Maurice Procedure Date: 08/09/2021 11:26AM Date of : 1980 Admit Type: Outpatient Age: 40 Gender: Male Attending MD: Irineo Seaman M.D. Room: [facility] ENDOSCOPY ROOM 1 Note Status: Finalized Patient [...] under direct vision. The Pediatric Colonoscope PCF-H190L [id number] was introducedthrough the anus and advanced to [...] 11:26 AM Procedure Code(s): --- Professional --- 97229, Colonoscopy, flexible; with removal of tumor(s), polyp(s), or other lesion(s) by snare technique Diagnosis Code(s): --- Professional --- K64.8, Other hemorrhoids K63.5, Polyp of colon K57.32, Diverticulitis of large intestine without perforation orabscess without bleeding K57.30, Diverticulosis of large intestine without perforation orabscess without bleeding CPT copyright 2019 [employer]. All rights reserved. The codes documented in this report are preliminary and upon bonderite operator reviewmay be revised to meet current compliance requirements. Recognized by the [employer] for promoting quality in endoscopy Irineo Seaman MD ENDOSCOPY PROCEDURES Final Result * Diabetic Foot Exam (03/31/2017) Narrative Elzbieta Garcia - 03/31/2017 Results already scanned in media Historical Provider HEALTH MAINTENANCE Final Result from Last 3 Months or Most Recently Relevant to Health Maintenance Insurance [facility] Advance Directives For more information, please contact: [phone] * Full Code (Latest Code Status on File) Date Activated Date Inactivated Comments 08/09/2021 11:15 AM 08/09/2021 6:46 PM Care Teams Aluminum Siding Mechanic Relationship Specialty Start Date End Date Hollis Connor MD [address] [place] [address] DR LOPEZ [address] [place] [address] PCP - General Family Medicine 08/19/24
--- OUTSIDE RECORDS SUMMARY | 2025-01-08 10:20 | XMS_ITS | Encounter Summary ---
Author Organization [facility] Address [address] [place] [address] Care Team Providers Care Marine Rigger Name Role Phone Radames Archer MD Primary Care Provider [phone] Hollis Connor MD Primary Care Provider [phone] Encounter Details Date Type Department Care Team (Late st Contact Info) Description 09/13/2021 Telephone [facility] [address] [place] [id number] Jono, [place], RT Social History Tobacco Use Types Packs/Day Years Used Date Smoking Tobacco: Never Smokeless Tobacco: Never Alcohol Use Standard Drinks/Week Comments Yes 0 (1 standard drink = 0.6 oz pur e alcohol) PHQ-2 Answer Date Recorded PHQ-2 Total Score (If total score is 3 or more points, staff should administer the PHQ-9) 0 04/30/2021 Sex and Gender Information Value Date Recorded Sex Assigned at Not on file Legal Sex Male 9:27 AM BUSINESS SYSTEMS CONSULTANT Gender Identity Not on file Sexual Orientation Not on file documented as of this encounter Plan of Treatment Not on file documented as of this encounter Visit Diagnoses Not on filedocumented in this encounter Additional Health Concerns Infection Onset Date Last Indicated Resolved Time COVID: Recovered Comment:Added based on recent COVID infection. 05/26/2021 06/07/2021 09/23/2021 3:[address] COVID: Suspected 05/09/2023 05/09/2023 05/09/2023 11:01 AM CDT COVID19 05/09/2023 05/09/202305/19/2023 3:05 AM CDT COVID: Recovered Comment:Added based on recent COVID infection. 05/19/2023 06/07/2023 08/17/2023 3:[address] COVID: Suspected 10/15/2024 10/15/2024 10/15/2024 10:02 AM BUSINESS SYSTEMS CONSULTANT Influenza, adult 10/15/2024 10/15/2024 10/22/2024 3:05 AM BUSINESS SYSTEMS CONSULTANT documented as of this encounter Care Teams Marine Rigger Relationship Specialty Start Date End Date Radames Archer MD PCP - General 12/16/16 08/18/24 Hollis Connor MD [address] [place] [address] [address] PCP - General Family Medicine 08/19/24 documented as of this encounter
--- NOTE | 2025-01-29 12:37 | P.SLEEP_ITS ---
Sleep Study - Home Unattended Date of Study: 01/08/25 Ordering Provider: Chelita Blanton MD Interpreting Provider: Mariah Nash DO Home Sleep Study Type: Watch PAT Height: 1.91 m Weight: 154.221 kg Body Mass Index: 42.5 Neck Circumference (inches): 17.5 [place]: 12 Reason for Sleep Study Daytime hypersomnia Sleep History The patient is a 44-year-old male that had a sleep study ordered by his residential support specialist for evaluation sleep apnea. The patient admits to snoring loudly and excessive daytime sleepiness. He denies interruptions in breathing while asleep. He denies choking or gasping at night. He denies having trouble breathing on his back. He denies morning headaches. He does have a dry or sore mouth /throat in the morning he denies nocturnal heartburn. He denies nocturia. He denies having difficulty falling or staying asleep. He does have difficulty returning to sleep if he wakes up throughout the night. He denies hypnotic or sedative use. He denies feeling anxious about sleep. He does feel tired or sleepy during the day. He does feel tired in the morning. He does have the urge to fall asleep during the day. He denies feeling drowsy while driving. He denies sleep paralysis, cataplexy and hypnagogic/ hypnopompic hallucinations. He does clench or grind his teeth. He denies kicking or jerking his legs excessively. He denies having a restless feeling in his legs. He goes to bed at 11:00 p.m. on work days and at 11:30 p.m. on his days off. It takes him 15 minutes to fall asleep. He gets 5 hours and 15 minutes of sleep on work days and 7 hours and 45 minutes of sleep on his days off. His sleep is a little more restorative on his days off. He denies taking any planned naps. He denies dream enactment behavior. He denies sleep walking. He consumes more than 5 caffeinated beverages per day. He denies tobacco and alcohol use. He denies exercising on a regular basis. [facility] Past Medical History Medical History Hypothyroidism (acquired) Body mass index (BMI) 35 or more (03/01/19) Family History Family History Other Family history of arthritis Family history of atrial fibrillation Family history of lung cancer Hypothyroidism (acquired) Social History Social History Smoking status: Never smoker Alcohol intake: current Additional gender identity comments: Teaching second grade all subjects at [employer] Medications Home Medications ?Medication ?Instructions ?Recorded ?Confirmed ?Type blood-glucose,manager business continuity,cont #1 ea 12/15/20 12/12/24 Rx (Dexcom G6 Court Assistant) atorvastatin 10 mg tablet (Lipitor) 10 mg PO DAILY #90 tabs 04/08/21 12/12/24 Rx blood sugar diagnostic (Contour #100 ea 11/22/23 12/12/24 Rx Next Test Strips) glucagon 1 mg/0.2 mL subcutaneous 1 mg (0.2 mL) subcut ONCE #0.4 mL 12/12/23 12/12/24 Rx auto-injector (Gvoke HypoPen 2-Pack) valsartan 40 mg tablet See Rx Instructions .Route 08/14/24 12/12/24 Rx .COMPLEX #90 tabs blood-glucose transmitter (Dexcom #1 ea 10/07/24 12/12/24 Rx G6 Transmitter device) levothyroxine 200 mcg tablet See Rx Instructions .Route 12/04/24 12/12/24 Rx .COMPLEX #90 tabs insulin lispro 200 unit/mL (3 mL) See Rx Instructions subcut 12/12/24 12/12/24 Rx subcutaneous pen (Humalog KwikPen .COMPLEX 3 months #90 mL U-200 Insulin) semaglutide (weight loss) 0.25 0.25 mg (0.5 mL) subcut WEEKLY #2 12/12/24 12/12/24 Rx mg/0.5 mL subcutaneous pen mL injector (Wegovy) blood-glucose sensor (Dexcom G6 #3 ea 01/02/25 Rx Sensor device) Sleep Procedure The sleep study was completed using WatchPAT a technically adequate device with seven channels: peripheral arterial tone, actigraphy, body position, snore, respiratory movement, pulse oximetry, sleep staging, and heart rate. Prior to using the device, the patient received verbal and written instructions for its application and was provided with the help desk phone number for additional telephonic instruction with 24-hour availability of qualified personnel to answer questions. The study was scored using CMS guidelines. Sleep Architecture EM latency is 101 minutes. The patient had 2 episodes of waking. Sleep architecture shows 23.2% deep sleep, 47.3% light sleep, and (as % Total Sleep Time) showed NREM (Light 47.3%; Deep 23.2%), and a 29.5% stage REM. The patient spent 87.4% of total sleep time in the supine position. Sleep efficiency was 93.27. Respiratory Analysis The overall AHI (pAHI 4%:) is 4.0. The overall AHI (pAHI 3%:) is 8.2. The central AHI is 0.2. The AHI was 1.4 in NREM and 24.6 in REM sleep. The AHI was 9.4 in Supine and 0.0 in Non-supine sleep. Percent of Abhishek Nieves respirations is 0.0. Oximetry Data The oxygen desaturation index (ENA 4%:) is 4.2. The mean saturation is 94%, and the lowest saturation is 81%. Time spent with saturation < 88% is 1.2 minutes. Snoring Profile Snoring average intensity is 45 dB. The patient snored above 45 decibels for 148.6 minutes, 39.6% of sleep time. Cardiac Profile The average pulse rate is 72 beats per minutes. The lowest pulse rate is 57 bpm. The highest pulse rate reported is 103 bpm. Atrial fibrillation was not dete cted. Premature beats occur <0.1 per minute. Assessment and Plan Assessment and Plan (1) JESSIE (obstructive sleep apnea): Code(s): G47.33 - Obstructive sleep apnea (adult) (pediatric) Status: Acute Assessment and Plan: The patient had an overall AHI of 8.2 (using 3% criteria) and 4.0 (using 4% criteria). If the patient's insurance company recognizes AASM guidelines for sleep study scoring, this is consistent with mild sleep apnea. Due to his diabetes, he qualifies for treatment. I recommend that the patient be prescribed AutoPAP 5-15 cm H2O, CPAP mask/filters/tubing and heated humidity. A mandibular advancement device is also an acceptable treatment option. This should be used with all episodes of sleep.? Compliance should be reviewed within 31-90 days of starting therapy for usage greater than 4 hours per night greater than 70% of the nights. The patient should be asked about symptoms such as?excessive daytime sleepiness, quality of sleep, decreased nocturia, increased?mental functioning such as memory, mood, and concentration. If the patient's insurance company only recognizes CMS guidelines (4% criteria), he does not meet criteria for mild sleep apnea and will need to have a split study for further evaluation of sleep apnea. Data The data obtained during this sleep study is adequate for interpretation. Certification This sleep study has been reviewed by a board certified sleep medicine physician.
[2025-01-29 12:38] VITALS: BMI 42.5
== END 2025-01-09 11:09 | disposition home or self-care (01) ==
LOC: ANHCSM 09:26
PROVIDERS: PCP Family Medicine; Visit Provider Internal Medicine Endocrinology, Diabetes & Metabolism
DX: G47.30 Sleep apnea, unspecified (principal); G47.33 Obstructive sleep apnea (adult) (pediatric)
CPT/HCPCS: 95800